=== PATIENT | male | born 1965 | race Caucasian/White ===

== ENCOUNTER 2022-10-03 14:30 | Emergency (ER) | payer OTHER ==
[2022-10-03] MEDS ORDERED: Sodium Chloride 0.9% 10 ML Syringe FLUSH PRN (15:33)
[2022-10-03] MEDS ORDERED: Famotidine 20 MG/2 ML SDV IVPUSH ONE (15:52)
== END 2022-10-03 17:20 | disposition home or self-care (01) ==
LOC: JD.ED 14:30
DX: R07.89 Other chest pain (principal); M54.6 Pain in thoracic spine; E78.00 Pure hypercholesterolemia, unspecified; Z79.899 Other long term (current) drug therapy
CPT/HCPCS: 36415; 71045; 80053; 80179; 83735; 83880; 84484; 85025; 85610; 85730; 93005; 96374; 99285; J3490